=== PATIENT | male | born 1960 | race Caucasian/White ===

== ENCOUNTER 2019-02-13 08:40 | Emergency (ER) | payer BC, OTHER ==
[2019-02-13] MEDS ORDERED: Morphine 4 MG/ML Syringe IM ONE (09:15)
--- NOTE | 2019-02-13 09:39 | EDM.PDOC ---
ED HPI GENERAL MEDICAL PROBLEM - General Chief Complaint: Upper Extremity Injury/Pain Stated Complaint: DOG BITE ON L THUMB Time Seen by Provider: 02/13/19 09:43 Source of Information: Reports: Patient - History of Present Illness INITIAL COMMENTS - FREE TEXT/NARRATIVE: 58 years old male patient presented to the ER with a chief complaint of dog bite to the right thumb. Patient was trying to separate his 2 dogs. The dog are up-to-date for all immunization. The patient last tetanus was in 2013. No other injuries. Right Finger-Thumb Pain Score (Numeric/FACES): 10 - Related Data Allergies Allergy/AdvReac Type Severity Reaction Status Date / Time Sulfa (Sulfonamide Allergy Rash Verified 02/13/19 08:47 Antibiotics) adhesive tapes Allergy Blisters Uncoded 02/13/19 08:47 Home Meds: Home Meds Losartan Potassium [Cozaar] 100 mg PO DAILY 08/09/14 [History] Omeprazole [Prilosec] 40 mg PO DAILY 08/09/14 [History] Varenicline [Chantix] 1 mg PO DAILY 08/09/14 [History] amLODIPine [Norvasc] 10 mg PO DAILY 08/09/14 [History] atorvaSTATin [Lipitor] 40 mg PO DAILY 08/09/14 [History] diphenhydrAMINE [Benadryl] 50 mg PO DAILY PRN 08/09/14 [History] Past Medical History HEENT History: Reports: Hard of Hearing, Impaired Vision Other HEENT History: wears glasses Cardiovascular History: Reports: High Cholesterol, Hypertension, SOB on Exertion Respiratory History: Reports: Sleep Apnea, SOB Gastrointestinal History: Reports: Colon Polyp, GERD, Other (See Below) Other Gastrointestinal History: Sarah's Musculoskeletal History: Reports: Back Pain, Chronic Neurological History: Reports: Alzheimers Disease Endocrine/Metabolic History: Reports: Diabetes, Type II, Obesity/BMI 30+ Dermatologic History: Reports: None - Infectious Disease History Infectious Disease History: Reports: Chicken Pox - Past Surgical History Head Surgeries/Procedures: Reports: Other (See Below) HEENT Surgical History: Reports: Adenoidectomy, Naso-Sinus Surgery, Other (See Below) Other HEENT Surgeries/Procedures: uvula removal Cardiovascular Surgical History: Reports: None Respiratory Surgical History: Reports: None GI Surgical History: Reports: Appendectomy, Colonoscopy, EGD, Hernia, Inguinal, Hernia Repair/Other Endocrine Surgical History: Reports: None Neurological Surgical History: Reports: C-Spine, Other (See Below) Other Neurological Surgeries/Procedures: 4th and 5th fusion Musculoskeletal Surgical History: Reports: Other (See Below) Other Musculoskeletal Surgeries/Procedures:: left foot/toe surgery Dermatological Surgical History: Reports: Skin Biopsy Social & Family History - Tobacco Use Smoking Status *Q: Current Some Day Smoker Years of Tobacco use: 20 Packs/Tins Daily: 0.2 Used Tobacco, but Quit: No Second Hand Smoke Exposure: Yes - Caffeine Use Caffeine Use: Reports: Coffee - Alcohol Use Days Per Week of Alcohol Use: 2 Number of Drinks Per Day: 3 Total Drinks Per Week: 6 - Recreational Drug Use Recreational Drug Use: No Review of Systems - Review of Systems Review Of Systems: Comprehensive ROS is negative, except as noted in HPI. ED EXAM, GENERAL - Physical Exam Exam: See Below Exam Limited By: No Limitations General Appearance: Alert, WD/WN, No Apparent Distress Nose: Normal Inspection, Normal Mucosa, No Blood Throat/Mouth: Normal Inspection, Normal Lips, Normal Teeth, Normal Gums, Normal Oropharynx, Normal Voice, No Airway Compromise Head: Atraumatic, Normocephalic Neck: Normal Inspection, Supple, Non-Tender, Full Range of Motion Respiratory/Chest: No Respiratory Distress, Lungs Clear, Normal Breath Sounds, No Accessory Muscle Use, Chest Non-Tender Cardiovascular: Normal Peripheral Pulses, Regular Rate, Rhythm, No Edema, No Gallop, No JVD, No Murmur, No Rub GI/Abdominal: Normal Bowel Sounds, Soft, Non-Tender, No Organomegaly, No Distention, No Abnormal Bruit, No Mass Extremities: Other (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 Bleeding controlled.) Course - Vital Signs Last Recorded V/S: Last Vital Signs Temp 36.7 C 02/13/19 08:58 Pulse 98 02/13/19 08:58 Resp 21 H 02/13/19 08:58 BP 163/106 H 02/13/19 08:58 Pulse Ox 95 02/13/19 08:58 - Orders/Labs/Meds Orders: Active Orders 24 hr Category Date Time Status Vaccines to be Administered [RC] PER UNIT ROUTINE Care 02/13/19 10:55 Active ceFAZolin [Ancef] 2 gm Med 02/13/19 10:56 Active Premix Bag 1 bag IV ONETIME Medication Orders Cefazolin Sodium/Dextrose 2 gm (/ Premix) 50 mls @ 100 mls/hr IV ONETIME ONE Stop: 02/13/19 11:25 Meds: Medications Generic Name Dose Route Start Last Admin Trade Name Dani PRN Reason Stop Dose Admin Cefazolin Sodium/Dextrose 2 gm 50 mls @ 100 mls/hr 02/13/19 10:56 / Premix IV 02/13/19 11:25 ONETIME ONE Discontinued Medications Generic Name Dose Route Start Last Admin Trade Name Freq PRN Reason Stop Dose Admin Diphtheria/Tetanus/Acell Pertussis 0.5 ml 02/13/19 10:55 Adacel IM 02/13/19 10:56 .ONCE ONE Morphine Sulfate 4 mg 02/13/19 09:15 02/13/19 09:20 Morphine IM 02/13/19 09:16 4 mg ONETIME ONE Administration Morphine Sulfate 4 mg 02/13/19 10:29 Morphine IVPUSH 02/13/19 10:30 ONETIME ONE - Re-Assessments/Exams Free Text/Narrative Re-Assessment/Exam: 02/13/19 09:45 Patient was seen and examined shortly after arrival. Stable. Given 4 mg IM morphine. Also given a tetanus shot. The dogs are immunized. X-ray reviewed. Open fracture all Z right thumb. Case was discussed with Lindsay URBINA from orthopedic at [facility]. She recommended a 2 g of Ancef, stay nothing by mouth. Patient was given another 4 mg IV morphine. Wet dressing applied. Stable for transfer to [facility]. He refused transfer by ambulance and his will drive him. Patient agrees with the plan. Stable for transfer. 02/13/19 11:02 02/13/19 11:03 Departure - Departure Time of Disposition: 11:03 Disposition: DC/Tfer to Acute Hospital 02 Condition: Fair Clinical Impression: Dog bite of extremity, Open fracture - Discharge Information Referrals: PCP,None [Primary Care Provider] - Forms: ED Department Discharge Sepsis Event Note - Evaluation Sepsis Screening Result: No Definite Risk - Focused Exam Vital Signs: Vital Signs Temp Pulse Resp BP Pulse Ox 02/13/19 08:58 36.7 C 98 21 H 163/106 H 95 02/13/19 08:50 36.7 C 98 21 H 163/106 H 95 Date Exam was Performed: 02/13/19 Time Exam was Performed: 11:00 - My Orders Last 24 Hours: My Active Orders 02/13/19 10:55 Vaccines to be Administered [RC] PER UNIT ROUTINE 02/13/19 10:56 ceFAZolin [Ancef] 2 gm Premix Bag 1 bag IV ONETIME - Assessment/Plan Last 24 Hours: My Active Orders 02/13/19 10:55 Vaccines to be Administered [RC] PER UNIT ROUTINE 02/13/19 10:56 ceFAZolin [Ancef] 2 gm Premix Bag 1 bag IV ONETIME Plan: Transferred to
[2019-02-13] MEDS ORDERED: Morphine 4 MG/ML Syringe IVPUSH ONE (10:29)
--- NOTE | 2019-02-13 10:40 | CRLCR ---
HISTORY: Dog bite. TECHNIQUE: Three views of the right thumb. COMPARISON: No prior. FINDINGS: There is a comminuted open fracture of the distal aspect of the distal phalanx of the right thumb. Osseous structures of the thumb are otherwise intact. Minor degenerative changes. IMPRESSION: Comminuted open fracture of the distal aspect of the distal phalanx of the right thumb. Dictated by Paxton Silva MD @ 02/13/2019 10:37:59 AM Dictated by: Paxton Silva MD @ 02/13/2019 10:38:04 (Electronically Signed)
[2019-02-13] MEDS ORDERED: Diphtheria,Pertussis(Acell),Tetanus Vaccine 0.5 ML SDV IM ONE (10:55)
[2019-02-13] MEDS ORDERED: ceFAZolin 2 GM in Premix Bag 1 BAG IV ONE (10:56)
[2019-02-13 11:30] VITALS: BP 134/77; PULSE 86
== END 2019-02-13 11:46 ==
LOC: JP.ED 08:40
DX: S68.021A Partial traumatic metacarpophalangeal amputation of right thumb, initial encounter (principal); Z23 Encounter for immunization; I10 Essential (primary) hypertension; E78.00 Pure hypercholesterolemia, unspecified; E11.9 Type 2 diabetes mellitus without complications; E66.9 Obesity, unspecified; Z68.44 Body mass index [BMI] 60.0-69.9, adult; G30.9 Alzheimer's disease, unspecified; F02.80 Dementia in other diseases classified elsewhere, unspecified severity, without behavioral disturbance, psychotic disturbance, mood disturbance, and anxiety; K21.9 Gastro-esophageal reflux disease without esophagitis; F17.210 Nicotine dependence, cigarettes, uncomplicated; Z88.2 Allergy status to sulfonamides; Z91.048 Other nonmedicinal substance allergy status; Z79.899 Other long term (current) drug therapy; W54.0XXA Bitten by dog, initial encounter
CPT/HCPCS: 73140; 90471; 90715; 96365; 96372; 96375; 99284; J0690; J2270

== ENCOUNTER 2019-09-16 07:35 | Day surgery (SDC) | payer BC ==
[~2019-09-16 07:35] MED LIST: Midazolam 1 MG/ML 2 ML SDV ONE; Propofol 200 MG/20 ML SDV ONE; fentaNYL 100 MCG/2 ML SDV ONE
[2019-09-16] MEDS ORDERED: Dextrose 5%-Lactated Ringers 1,000 ML IV SCH (08:00)
[2019-09-16 11:24] VITALS: BP 119/75; PULSE 59
[2019-09-16] MEDS ORDERED: Propofol 200 MG/20 ML SDV ONE (12:00)
--- NOTE | 2019-09-19 14:35 | OR ---
DATE OF PROCEDURE: 09/16/2019 SURGEON: Noble Munoz MD PREOPERATIVE DIAGNOSIS: History of Sarah esophagus. POSTOPERATIVE DIAGNOSES: 1. 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 2. Mild antral gastritis. OPERATIVE PROCEDURES: Esophagogastroduodenoscopy with; 1. Biopsies of esophagogastric junction for histologic evaluation. 2. Biopsies of antrum for CLOtest. ANESTHESIA: IV sedation. INDICATION FOR PROCEDURE: A 59-year-old male presenting for followup of his Sarah esophagus. The patient is presently on omeprazole 40 mg a day and with this has good control of his reflux symptoms. Plan is to proceed with an upper GI endoscopy with biopsies of esophagogastric junction and other procedures as indicated. Potential risks including bleeding and perforation were discussed, and the patient wishes to proceed. DETAILS OF PROCEDURE: The patient was taken to the operating room and placed in a left lateral decubitus position. IV sedation was administered, after which, the upper GI endoscope was passed orally through the length of the esophagus, into the stomach with retroflexion view of the fundus, and thereafter through the pyloric channel and into the proximal duodenum. Findings included normal hypopharynx, larynx, upper esophageal sphincter, and esophageal body. At the EG junction, there was a small hiatal hernia present. There was some minimal edema of the distal esophageal mucosa with some upward extension of the gastroesophageal junction-mucosal line above the upper gastric folds consistent with Sarah esophagus. No plaquing or stricturing or gross evidence of neoplasia were seen. Within the stomach, there was some patchy redness in the antrum, otherwise the remainder of the gastroduodenal and antrum were unremarkable. At this point, biopsies were obtained from the antrum and sent for CLOtest for H pylori. Biopsies were obtained from the esophagogastric junction circumferentially. Minimal bleeding from the biopsy sites was seen and the procedure then concluded. Assuming there is no progression of the Sarah esophagus toward dysplasia, I recommend that he repeat the upper endoscopy in 2 years and to continue the present medical management. Noble Munoz MD /[id number]
== END 2019-09-16 11:25 | disposition home or self-care (01) ==
LOC: JP.SDS 07:35
PROVIDERS: ATTEND Surgery
DX: K20.9 Esophagitis, unspecified (principal); K29.70 Gastritis, unspecified, without bleeding; K44.9 Diaphragmatic hernia without obstruction or gangrene; G47.33 Obstructive sleep apnea (adult) (pediatric); I10 Essential (primary) hypertension; E66.9 Obesity, unspecified; Z68.41 Body mass index [BMI] 40.0-44.9, adult; Z99.89 Dependence on other enabling machines and devices; Z87.19 Personal history of other diseases of the digestive system
CPT/HCPCS: 43239; 87081; 88305; J2250; J2704; J3010; J7121

== ENCOUNTER 2021-01-11 13:00 | Emergency (ER) | payer BC ==
--- NOTE | 2021-01-11 13:21 | EDM.PDOC ---
ED HPI GENERAL MEDICAL PROBLEM - General Chief Complaint: Cardiovascular Problem Stated Complaint: SOB Time Seen by Provider: 01/11/21 13:14 Source of Information: Reports: Patient History Limitations: Reports: No Limitations - History of Present Illness INITIAL COMMENTS - FREE TEXT/NARRATIVE: Jin is a 60-year-old male presenting to the ED for evaluation of increased shortness of breath, chest tightness, and tachycardia following getting his COVID-19 booster yesterday. Patient was in his usual state of health until getting the booster and then today developed symptoms of increased heart rate as noted on his watch, some chest tightness and increasing shortness of breath. He denies any fever or chills, cough, nausea or vomiting, or diaphoresis. 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 He also noticed that he was starting to get some central chest pressure and waves of nausea. Throughout the day he has felt increasingly ill. He was recently treated for an upper respiratory tract infection with Augmentin. Does have a history significant for morbid obesity, diabetes, hyperlipidemia and hypertension. - Related Data Allergies Allergy/AdvReac Type Severity Reaction Status Date / Time Sulfa (Sulfonamide Allergy Intermediate Rash Verified 01/11/21 13:21 Antibiotics) metformin Allergy Mild Muscle Verified 01/11/21 13:21 Aches adhesive tapes Allergy Intermediate Blisters Uncoded 01/11/21 13:21 Home Meds: Home Meds Losartan Potassium [Cozaar] 100 mg PO DAILY 08/09/14 [History] Omeprazole [Prilosec] 40 mg PO DAILY 08/09/14 [History] Varenicline [Chantix] 1 mg PO DAILY PRN 08/09/14 [History] amLODIPine [Norvasc] 10 mg PO DAILY 08/09/14 [History] atorvaSTATin [Lipitor] 40 mg PO DAILY 08/09/14 [History] diphenhydrAMINE [Benadryl] 50 mg PO DAILY PRN 08/09/14 [History] Aspirin [Halfprin] 81 mg PO DAILY 09/15/19 [History] Dulaglutide [Trulicity] 0.75 mg SQ Q7D 09/15/19 [History] Fluocinonide [Lidex 0.05% Crm] 30 gm TOP BID PRN 09/15/19 [History] Cholecalciferol (Vitamin D3) [Vitamin D3] 400 unit PO DAILY 01/11/21 [History] Multivitamin 1 each PO DAILY 01/11/21 [History] Past Medical History HEENT History: Reports: Hard of Hearing, Impaired Vision Other HEENT History: wears glasses Cardiovascular History: Reports: High Cholesterol, Hypertension, SOB on Exertion Respiratory History: Reports: Sleep Apnea, SOB Gastrointestinal History: Reports: Colon Polyp, GERD, Other (See Below) Other Gastrointestinal History: Sarah's Musculoskeletal History: Reports: Back Pain, Chronic Neurological History: Reports: Alzheimers Disease Endocrine/Metabolic History: Reports: Diabetes, Type II, Obesity/BMI 30+ Dermatologic History: Reports: None - Infectious Disease History Infectious Disease History: Reports: Chicken Pox - Past Surgical History Head Surgeries/Procedures: Reports: Other (See Below) HEENT Surgical History: Reports: Adenoidectomy, Naso-Sinus Surgery, Other (See Below) Other HEENT Surgeries/Procedures: uvula removal Cardiovascular Surgical History: Reports: None Respiratory Surgical History: Reports: None GI Surgical History: Reports: Appendectomy, Colonoscopy, EGD, Hernia, Inguinal, Hernia Repair/Other Endocrine Surgical History: Reports: None Neurological Surgical History: Reports: C-Spine, Other (See Below) Other Neurological Surgeries/Procedures: 4th and 5th fusion Musculoskeletal Surgical History: Reports: Other (See Below) Other Musculoskeletal Surgeries/Procedures:: left foot/toe surgery Dermatological Surgical History: Reports: Skin Biopsy Social & Family History - Caffeine Use Caffeine Use: Reports: Coffee ED ROS GENERAL - Review of Systems Review Of Systems: See Below Constitutional: Reports: Malaise (Generalized) HEENT: Reports: No Symptoms Respiratory: Reports: Shortness of Breath Cardiovascular: Reports: Chest Pain (Chest tightness) Endocrine: Reports: No Symptoms GI/Abdominal: Reports: Decreased Appetite, Nausea (Waves of nausea) : Reports: No Symptoms Musculoskeletal: Reports: Muscle Pain (Body aches) Skin: Reports: No Symptoms Neurological: Reports: No Symptoms Psychiatric: Reports: No Symptoms Hematologic/Lymphatic: Reports: No Symptoms Immunologic: Reports: No Symptoms ED EXAM, GENERAL - Physical Exam Exam: See Below Exam Limited By: No Limitations General Appearance: Alert, Anxious, Mild Distress Eye Exam: Bilateral Eye: EOMI, PERRL Throat/Mouth: Normal Oropharynx, Normal Voice, No Airway Compromise Head: Atraumatic, Normocephalic Neck: Normal Inspection, Supple, Non-Tender. No: Carotid Bruit, Lymphadenopathy (R), Lymphadenopathy (L) Respiratory/Chest: No Respiratory Distress, Lungs Clear, Normal Breath Sounds, No Accessory Muscle Use. No: Crackles, Rales, Rhonchi, Wheezing Cardiovascular: Normal Peripheral Pulses, Regular Rate, Rhythm, No Murmur Peripheral Pulses: 2+: Radial (L), Radial (R) GI/Abdominal: Normal Bowel Sounds, Soft, Non-Tender Back Exam: Normal Inspection, Full Range of Motion Extremities: Normal Inspection, Normal Range of Motion Neurological: Alert, Oriented, Normal Cognition, No Motor/Sensory Deficits Psychiatric: Normal Affect, Anxious Skin Exam: Warm, Dry, Intact, Normal Color Lymphatic: No Adenopathy #1 Interpretation EKG Date: 01/11/21 Time: 16:42 Rhythm: NSR Rate (Beats/Min): 92 [place]: LAD-Left [place] Deviation P-Wave: Present QRS: Normal (Left anterior fascicular block) ST-T: Normal QT: Normal Comparison: NA - No Prior EKG Course - Vital Signs Last Recorded V/S: Last Vital Signs Temp 36.9 C 01/11/21 13:15 Pulse 83 01/11/21 15:37 Resp 20 01/11/21 13:15 BP 131/62 01/11/21 15:37 Pulse Ox 92 L 01/11/21 15:37 - Orders/Labs/Meds Orders: Active Orders 24 hr Category Date Time Status Chest 2V [CR] Stat Exams 01/11/21 15:33 Taken EKG 12 Lead [EK] Routine Ther 01/11/21 15:33 Ordered Labs: Laboratory Tests 01/11/21 01/11/21 Range/Units 15:43 15:43 WBC 8.6 (4.5-11.0) K/uL RBC 4.80 (4.30-5.90) M/uL Hgb 15.1 H (12.0-15.0) g/dL Hct 43.5 (40.0-54.0) % MCV 91 (80-98) fL MCH 32 H (27-31) pg MCHC 35 (32-36) % Plt Count 209 (150-400) K/uL Neut % (Auto) 76.6 H (36-66) % Lymph % (Auto) 14.6 L (24-44) % [place] % (Auto) 8.1 H (2-6) % Eos % (Auto) 0.5 L (2-4) % Baso % (Auto) 0.2 (0-1) % Sodium 139 L (140-148) mmol/L Potassium 3.9 (3.6-5.2) mmol/L Chloride 99 L (100-108) mmol/L Carbon Dioxide 27 (21-32) mmol/L Anion Gap 16.9 H (5.0-14.0) mmol/L BUN 20 H (7-18) mg/dL Creatinine 0.9 (0.8-1.3) mg/dL Est Cr Clr Drug Dosing 98.20 mL/min Estimated GFR (MDRD) > 60 (>60) Glucose 160 H (74-106) mg/dL Calcium 9.4 (8.5-10.1) mg/dL Total Bilirubin 0.7 (0.2-1.0) mg/dL AST 43 H (15-37) U/L ALT 58 (12-78) U/L Alkaline Phosphatase 86 (46-116) U/L Troponin I < 0.017 (0.000-0.056) ng/mL C-Reactive Protein 1.19 H (0.0-0.3) mg/dL Total Protein 8.0 (6.4-8.2) g/dL Albumin 4.2 (3.4-5.0) g/dL Globulin 3.8 H (2.3-3.5) g/dL Albumin/Globulin Ratio 1.1 L (1.2-2.2) - Re-Assessments/Exams Free Text/Narrative Re-Assessment/Exam: 01/11/21 16:27 I reviewed the patient's labs showing a normal CBC with a leukocyte count of 8.6, hemoglobin of 15.1, hematocrit of 43.5, and a platelet count of 209,000. His basic metabolic profile shows a sodium 139, potassium 3.9, chloride of 99, bicarbonate of 27, BUN of 20 with a creatinine of 0.9 and a glucose of 160. GFR is calculated at greater than 90. C-reactive protein is mildly elevated at 1.19 and troponin is negative at less than 0.017. EKG shows normal sinus rhythm with a left anterior fascicular block but no evidence for acute infarct or injury. Chest x-ray is obtained and is unremarkable for any significant findings. Patient symptoms are likely due to his recent COVID-19 booster shot. I do not see anything worrisome in his work-up today. Patient is discharged home with instructions to take Tylenol for body aches, push plenty of fluids to treat his dehydration and rest. Indications return to the ED were discussed. 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 Your cardiac and pulmonary work-up were unremarkable. There is no evidence for heart failure. There is no evidence for any heart damage. There is no evidence for either pulmonary edema or infection. You are likely having reaction related to reactivation of your immune system due to the vaccination causing mild Covid-like symptoms. This should pass in the course of the next couple of days. I would recommend taking Tylenol for pain and pushing plenty of fluids as you are mildly dehydrated. 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
[2021-01-11 15:38] VITALS: BP 131/62; PULSE 83
--- NOTE | 2021-01-12 09:11 | CR ---
CHEST: 2 view CLINICAL HISTORY:Chest tightness COMPARISON:2015 FINDINGS: There is some mild increase in the interstitial lung markings. This may be chronic. The heart size, pulmonary vascularity and hilar structures are normal. No infiltrate effusion or pneumothorax is seen. There are atherosclerotic changes in the aorta. IMPRESSION: No acute cardiopulmonary process.
== END 2021-01-11 16:43 | disposition home or self-care (01) ==
LOC: JP.ED 13:00
DX: T88.1XXA Other complications following immunization, not elsewhere classified, initial encounter (principal); E78.00 Pure hypercholesterolemia, unspecified; I10 Essential (primary) hypertension; E11.9 Type 2 diabetes mellitus without complications; E66.9 Obesity, unspecified; Z68.30 Body mass index [BMI] 30.0-30.9, adult; Z91.048 Other nonmedicinal substance allergy status; Z88.2 Allergy status to sulfonamides; Z88.8 Allergy status to other drugs, medicaments and biological substances
CPT/HCPCS: 36415; 71046; 71046-26; 80053; 84484; 85025; 86140; 93005; 99285-25

== ENCOUNTER 2021-10-25 06:49 | Day surgery (SDC) | payer BC ==
[2021-10-25] MEDS ORDERED: fentaNYL 100 MCG/2 ML SDV ONE (06:54)
[2021-10-25] MEDS ORDERED: Propofol 200 MG/20 ML SDV ONE ×2 (06:54→08:16)
[2021-10-25] MEDS ORDERED: Midazolam 1 MG/ML 2 ML SDV ONE (06:55)
[2021-10-25] MEDS ORDERED: Dextrose 5%-Lactated Ringers 1,000 ML IV SCH (07:00)
[2021-10-25] MEDS ORDERED: Pantoprazole 40 MG Vial IVPUSH ONE (08:29)
[2021-10-25 09:04] VITALS: BP 125/73; PULSE 55
== END 2021-10-25 09:25 | disposition home or self-care (01) ==
LOC: JP.SDS 06:49
PROVIDERS: ATTEND Surgery
DX: Z12.11 Encounter for screening for malignant neoplasm of colon (principal); K62.1 Rectal polyp; K44.9 Diaphragmatic hernia without obstruction or gangrene; K57.30 Diverticulosis of large intestine without perforation or abscess without bleeding; Z86.010 Personal history of colon polyps; Z87.19 Personal history of other diseases of the digestive system; Z88.2 Allergy status to sulfonamides; Z88.8 Allergy status to other drugs, medicaments and biological substances; Z91.048 Other nonmedicinal substance allergy status
CPT/HCPCS: 43239; 45385; 88305; C9113; J2250; J2704; J3010; J7121

== ENCOUNTER 2024-08-11 06:45 | Day surgery (SDC) | payer BC ==
[2024-08-11] MEDS ORDERED: Propofol 200 MG/20 ML SDV ONE (07:08)
[2024-08-11] MEDS ORDERED: fentaNYL 50 MCG/ML SDV ONE (07:08)
[2024-08-11] MEDS: Lactated Ringers 1,000 ML IV SCH (07:14)
[2024-08-11 09:20] VITALS: BP 138/72; PULSE 54
== END 2024-08-11 09:10 | disposition home or self-care (01) ==
LOC: JP.SDS 06:45
PROVIDERS: ATTEND Surgery
DX: K22.70 Barrett's esophagus without dysplasia (principal); K22.89 Other specified disease of esophagus; I10 Essential (primary) hypertension; E11.9 Type 2 diabetes mellitus without complications; G47.33 Obstructive sleep apnea (adult) (pediatric)
CPT/HCPCS: 00731; 43239; J2704; J3010; J7120; 88305